=== PATIENT | male | born 1980 | race Caucasian/White ===

== ENCOUNTER 2018-04-27 15:18 | Inpatient (IN) ==
[2018-04-27 16:51] LABS: Amphetamine Screen,Urine Neg (Neg); Barbiturate Screen,Urine Neg (Neg)
[2018-04-27 16:52] LABS: Cannabinoid Screen,Urine Pos (Neg); Cocaine Screen,Urine Neg (Neg); Opiate Screen,Urine Neg (Neg)
[2018-04-27 16:59] LABS: Baso # (Auto) 0.1 th/mm3 (0.0-0.2); Baso % (Auto) 0.5 % (0.0-2.0); Eos # (Auto) 0.2 th/mm3 (0.0-0.4); Eos % (Auto) 1.9 % (0.0-4.0); Hematocrit 44.5 % (39.0-51.0); Hemoglobin 15.3 gm/dL (13.0-17.0); Lymph # (Auto) 3.3 th/mm3 (1.0-4.8); Lymph % (Auto) 29.6 % (9.0-44.0); Mean Corpuscular HGB Conc 34.4 % (32.0-36.0); Mean Corpuscular Hemoglobin 29.3 pg (27.0-34.0); Mean Corpuscular Volume 85.2 fL (80.0-100.0); Mean Platelet Volume 8.7 fL (7.0-11.0); Mono # (Auto) 0.8 th/mm3 (0.0-0.9); Mono % (Auto) 7.2 % (0.0-8.0); Neut # (Auto) 6.7 th/mm3 (1.8-7.7); Neut % (Auto) 60.8 % (16.0-70.0); Platelet Count 299 th/mm3 (150-450); Red Blood Count 5.22 mil/mm3 (4.50-5.90); White Blood Count 11.1 th/mm3 (4.0-11.0)
[2018-04-27 17:16] LABS: Albumin 3.7 g/dL (3.4-5.0); Anion Gap 7 meq/L (5-15); Aspartate Aminotransferase 14 U/L (15-37); Blood Urea Nitrogen 18 mg/dL (7-18); Calcium 8.7 mg/dL (8.5-10.1); Carbon Dioxide 26.6 meq/L (21.0-32.0); Chloride 108 meq/L (98-107); Glomerular Filtration Rate Greater Than 89 mL/min (>89); Glucose,Random 83 mg/dL (74-106); Magnesium 2.1 mg/dL (1.5-2.5); Potassium 3.8 meq/L (3.5-5.1); Sodium 142 meq/L (136-145)
[2018-04-27 17:26] LABS: Alanine Aminotransferase 37 U/L (12-78); Alkaline Phosphatase 113 U/L (45-117); Total Protein 7.1 g/dL (6.4-8.2)
--- NOTE | 2018-04-27 17:56 | ED ---
HPI General Chief Complaint: Psychiatric Symptoms Stated Complaint: Psych Eval/OBPD Time Seen by Provider: 04/27/18 15:57 Source: patient Mode of arrival: ambulatory Limitations: no limitations History of Present Illness HPI Narrative: 38-year-old male presents to the emergency department under [place] act. According to the Franklin act report the patient requested help because he was feeling depressed and suicidal. He said he is diagnosed with depression and normally prescribed Zoloft for his depression. Says he has not been taking his medication for over a month due to financial issues dealing with his insurance company. On my examination patient reports suicidal ideation. Denies suicidal plan. Reports history of suicidal attempt by overdosing on pills. Denies homicidal ideation. Denies auditory visual hallucinations. Reports marijuana use. Denies alcohol abuse. Reports tobacco use. Symptoms are aggravated by him not taking his medications. Says he is also overwhelmed by Adult Protective Services trying to find placement for him. Symptoms may be relieved with medication. Symptoms are moderate to severe in severity. Onset unknown. Duration most likely chronic. History of depression , PTSD, anxiety. Medical history of hypertension, asthma, degenerative joint disease, seizures. Says he supposed be taking Dilantin and has not taken it in over 1 month. Does not know his dosage. Has not taken blood pressure medications for multiple years. Has no emergent medical complaints. Psychiatry is at [facility]. No known allergies. No primary care provider. Has no other medical complaints. No other modifying factors or associated signs and symptoms. Related Data Home Medications Medication Instructions Recorded Confirmed albuterol sulfate 2 puff INHALATION Q4-6H PRN 11/27/17 04/27/18 ibuprofen [Motrin IB] 800 mg PO TID 11/27/17 04/27/18 Allergies Allergy/AdvReac Type Severity Reaction Status Date / Time No Known Allergies Allergy Verified 04/27/18 17:01 Review of Systems ROS: all other systems reviewed are negative [facility] Medical History Medical History Anxiety (Acute) PTSD (post-traumatic stress disorder) (Acute) Asthma (Acute) Degenerative joint disease (Acute) HTN (hypertension) (Acute) Seizures (Acute) Social History Social History Substance History: Active Abuse Second Hand Smoke Exposure: No Smoking Status: Current every day smoker Tobacco Type: Cigarettes How Often Do You Have a Drink Containing Alcohol: Monthly or less Recent Travel in [email or web address] within the Last 8 Weeks: No Recent Out of Country Travel within the Last 8 Weeks: No Substance Abuse Detail Marijuana: Substance Use Status: Active Route Used Substance Abuse: Inhalation Substance Frequency: daily Substance Abuse Comment: helps with anxiety and PTSD Reason for Use: Calm Down Immunization History Tetanus Immunization: Unsure Exam Narrative Exam Narrative: GENERAL: Well-nourished, well-developed male patient, in no acute distress SKIN: Warm and dry. HEAD: Atraumatic. Normocephalic. EYES: Pupils equal and round. ENT: Mucosa pink and moist. NECK: Supple. Trachea midline. CARDIOVASCULAR: Regular rate and rhythm. No murmur appreciated. RESPIRATORY: No accessory muscle use. Clear to auscultation. Breath sounds equal bilaterally. GASTROINTESTINAL: Abdomen soft, non-tender, nondistended. Hepatic and splenic margins not palpable. Bowel sounds are active 4 quadrants. MUSCULOSKELETAL: No obvious deformities. No clubbing. No cyanosis. No edema. NEUROLOGICAL: Awake and alert. Oriented 3. No obvious cranial nerve deficits. Motor grossly within normal limits. Normal speech. Moves all extremities. 5/5 strength to all extremities. PSYCHIATRIC: No delusional thought processes. No hallucinations. Course Initial Documented Vital Signs Temperature 98.1 F 04/27/18 15:34 Pulse Rate 93 H 04/27/18 15:34 Respiratory Rate 18 04/27/18 15:34 Blood Pressure 129/85 04/27/18 15:34 Pulse Oximetry 95 04/27/18 15:34 Last Documented Vital Signs Temperature 98.0 F 04/29/18 05:36 Pulse Rate 65 04/29/18 15:59 Respiratory Rate 16 04/29/18 15:59 Blood Pressure 158/104 H 04/29/18 05:36 Pulse Oximetry 98 04/29/18 05:36 Medical Decision Making [facility] Narrative Medical decision making narrative: Patient presents under a Franklin act. Physical examination and vital signs are essentially unremarkable. Patient has no medical complaints to report. Psych screen has been ordered. If the laboratory results are unremarkable, the patient will be medically cleared for psychiatric evaluation and disposition. The nurse taking care of the patient has called [facility] to verify Dilantin dosage and the senior technical writer in the ER has called [facility] to verify Dilantin dosage and there is no verified Dilantin that has been prescribed to this patient in the past year and a half on their records. These are the 2 pharmacies the patient has reported that he uses for prescriptions. I do not feel comfortable administering the medication that I cannot verify the patient takes, therefore I will not order any Dilantin for the patient. Medical Screen Exam Complete: Yes Emergency Medical Condition: Yes Differential Diagnosis Differential Diagnosis: depression, suicidal ideation, anxiety, medical clearance for psychiatric assessment Lab Data Result diagrams: 04/27/18 15:45 04/29/18 06:17 Lab Results 04/27/18 04/27/18 04/27/18 Range/Units 15:45 15:45 15:45 WBC 11.1 H (4.0-11.0) th/mm3 RBC 5.22 (4.50-5.90) mil/mm3 Hgb 15.3 (13.0-17.0) gm/dL Hct 44.5 (39.0-51.0) % MCV 85.2 (80.0-100.0) fL MCH 29.3 (27.0-34.0) pg MCHC 34.4 (32.0-36.0) % RDW 14.0 (11.6-17.2) % Plt Count 299 (150-450) th/mm3 MPV 8.7 (7.0-11.0) fL Neut % (Auto) 60.8 (16.0-70.0) % Lymph % (Auto) 29.6 (9.0-44.0) % [place] % (Auto) 7.2 (0.0-8.0) % Eos % (Auto) 1.9 (0.0-4.0) % Baso % (Auto) 0.5 (0.0-2.0) % Neut # (Auto) 6.7 (1.8-7.7) th/mm3 Lymph # (Auto) 3.3 (1.0-4.8) th/mm3 [place] # (Auto) 0.8 (0.0-0.9) th/mm3 Eos # (Auto) 0.2 (0.0-0.4) th/mm3 Baso # (Auto) 0.1 (0.0-0.2) th/mm3 WBC Differential . Differential Comment Auto diff final Sodium 142 (136-145) meq/L Potassium 3.8 (3.5-5.1) meq/L Chloride 108 H (98-107) meq/L Carbon Dioxide 26.6 (21.0-32.0) meq/L Anion Gap 7 (5-15) meq/L BUN 18 (7-18) mg/dL Creatinine 0.90 (0.60-1.30) mg/dL Estimated GFR Greater than 89 (>89) mL/min Random Glucose 83 (74-106) mg/dL Hemoglobin A1c (4.3-6.0) % Calcium 8.7 (8.5-10.1) mg/dL Magnesium 2.1 (1.5-2.5) mg/dL Total Bilirubin 0.2 (0.2-1.0) mg/dL AST 14 L (15-37) U/L ALT 37 (12-78) U/L Alkaline Phosphatase 113 (45-117) U/L Total Protein 7.1 (6.4-8.2) g/dL Albumin 3.7 (3.4-5.0) g/dL Triglycerides (42-150) mg/dL Cholesterol (120-200) mg/dL LDL Cholesterol, Calc (0-99) mg/dL HDL Cholesterol (40.0-60.0) mg/dL Cholesterol/HDL Ratio Ratio TSH 1.320 (0.358-3.740) uIU/mL Salicylates 5.3 (2.8-20.0) mg/dL Urine Opiates Screen (Neg) Acetaminophen Less than 2.0 L (10.0-30.0) mcg/mL Ur Barbiturates Screen (Neg) Phenytoin (10.0-20.0) mcg/mL Ur Amphetamines Screen (Neg) U Benzodiazepines Scrn (Neg) Urine Cocaine Screen (Neg) U Cannabinoids Screen (Neg) Serum Alcohol Less than 3 (0-5) mg/dL 04/27/18 04/27/18 04/29/18 Range/Units 15:45 16:03 06:17 WBC (4.0-11.0) th/mm3 RBC (4.50-5.90) mil/mm3 Hgb (13.0-17.0) gm/dL Hct (39.0-51.0) % MCV (80.0-100.0) fL MCH (27.0-34.0) pg MCHC (32.0-36.0) % RDW (11.6-17.2) % Plt Count (150-450) th/mm3 MPV (7.0-11.0) fL Neut % (Auto) (16.0-70.0) % Lymph % (Auto) (9.0-44.0) % [place] % (Auto) (0.0-8.0) % Eos % (Auto) (0.0-4.0) % Baso % (Auto) (0.0-2.0) % Neut # (Auto) (1.8-7.7) th/mm3 Lymph # (Auto) (1.0-4.8) th/mm3 [place] # (Auto) (0.0-0.9) th/mm3 Eos # (Auto) (0.0-0.4) th/mm3 Baso # (Auto) (0.0-0.2) th/mm3 WBC Differential Differential Comment Sodium 139 (136-145) meq/L Potassium 4.2 (3.5-5.1) meq/L Chloride 108 H (98-107) meq/L Carbon Dioxide 24.7 (21.0-32.0) meq/L Anion Gap 6 (5-15) meq/L BUN 19 H (7-18) mg/dL Creatinine 0.90 (0.60-1.30) mg/dL Estimated GFR Greater than 89 (>89) mL/min Random Glucose 98 (74-106) mg/dL Hemoglobin A1c (4.3-6.0) % Calcium 8.4 L (8.5-10.1) mg/dL Magnesium (1.5-2.5) mg/dL Total Bilirubin (0.2-1.0) mg/dL AST (15-37) U/L ALT (12-78) U/L Alkaline Phosphatase (45-117) U/L Total Protein (6.4-8.2) g/dL Albumin (3.4-5.0) g/dL Triglycerides 76 (42-150) mg/dL Cholesterol 127 (120-200) mg/dL LDL Cholesterol, Calc 83 (0-99) mg/dL HDL Cholesterol 28.4 L (40.0-60.0) mg/dL Cholesterol/HDL Ratio 4.47 Ratio TSH (0.358-3.740) uIU/mL Salicylates (2.8-20.0) mg/dL Urine Opiates Screen Neg (Neg) Acetaminophen (10.0-30.0) mcg/mL Ur Barbiturates Screen Neg (Neg) Phenytoin 0.8 L (10.0-20.0) mcg/mL Ur Amphetamines Screen Neg (Neg) U Benzodiazepines Scrn Neg (Neg) Urine Cocaine Screen Neg (Neg) U Cannabinoids Screen Pos H (Neg) Serum Alcohol (0-5) mg/dL 04/29/18 Range/Units 06:17 WBC (4.0-11.0) th/mm3 RBC (4.50-5.90) mil/mm3 Hgb (13.0-17.0) gm/dL Hct (39.0-51.0) % MCV (80.0-100.0) fL MCH (27.0-34.0) pg MCHC (32.0-36.0) % RDW (11.6-17.2) % Plt Count (150-450) th/mm3 MPV (7.0-11.0) fL Neut % (Auto) (16.0-70.0) % Lymph % (Auto) (9.0-44.0) % [place] % (Auto) (0.0-8.0) % Eos % (Auto) (0.0-4.0) % Baso % (Auto) (0.0-2.0) % Neut # (Auto) (1.8-7.7) th/mm3 Lymph # (Auto) (1.0-4.8) th/mm3 [place] # (Auto) (0.0-0.9) th/mm3 Eos # (Auto) (0.0-0.4) th/mm3 Baso # (Auto) (0.0-0.2) th/mm3 WBC Differential Differential Comment Sodium (136-145) meq/L Potassium (3.5-5.1) meq/L Chloride (98-107) meq/L Carbon Dioxide (21.0-32.0) meq/L Anion Gap (5-15) meq/L BUN (7-18) mg/dL Creatinine (0.60-1.30) mg/dL Estimated GFR (>89) mL/min Random Glucose (74-106) mg/dL Hemoglobin A1c 5.5 (4.3-6.0) % Calcium (8.5-10.1) mg/dL Magnesium (1.5-2.5) mg/dL Total Bilirubin (0.2-1.0) mg/dL AST (15-37) U/L ALT (12-78) U/L Alkaline Phosphatase (45-117) U/L Total Protein (6.4-8.2) g/dL Albumin (3.4-5.0) g/dL Triglycerides (42-150) mg/dL Cholesterol (120-200) mg/dL LDL Cholesterol, Calc (0-99) mg/dL HDL Cholesterol (40.0-60.0) mg/dL Cholesterol/HDL Ratio Ratio TSH (0.358-3.740) uIU/mL Salicylates (2.8-20.0) mg/dL Urine Opiates Screen (Neg) Acetaminophen (10.0-30.0) mcg/mL Ur Barbiturates Screen (Neg) Phenytoin (10.0-20.0) mcg/mL Ur Amphetamines Screen (Neg) U Benzodiazepines Scrn (Neg) Urine Cocaine Screen (Neg) U Cannabinoids Screen (Neg) Serum Alcohol (0-5) mg/dL Discharge Plan Discharge Disposition Patient Disposition: ED Admit(ED Internal Use Only) Discharge Condition Condition: Stable Discharge Order Discharge Orders: ED Use Only Admit Order (Routine); Ordered 04/28/18 Ordered By: Nathalie Lewis Discharge Details Diagnosis: Encounter for psychiatric assessment Physicians Team ED Provider: Parag Bell ED Midlevel Provider: Junie Avendano Primary Care Provider: Primary Care Tanya Davila Attending Provider: Roldan Hernandez Other Providers: Niurka Kiser Discharge Interventions Interventions: ED Discharge Assessment Last Done: 04/28/18 10:53 Vital Signs Last Done: 04/28/18 04:27 Status ED Status: Left Department Discharge Information Discharge Date/Time: 04/28/18 11:19
[2018-04-28] MEDS ORDERED: Bisacodyl 10 MG Supp RECTAL PRN (10:12)
--- NOTE | 2018-04-28 13:16 | ED ---
HPI - Psych - General Source: patient Mode of arrival: ambulatory - History of Present Illness complaint: suicidal ideation, feels depressed Onset (ago): day(s) Duration: intermittent, getting worse History of same: Yes Relieving factors: medication Exacerbating factors: other (Noncompliance with medication) Context: significant life stressor (Homeless) Associated psychiatric symptoms: depression, suicidal ideation Associated symptoms: denies other symptoms Treatments prior to arrival: none - General Chief Complaint: Psychiatric Symptoms Stated Complaint: Psych Eval/OBPD Time Seen by Provider: 04/27/18 15:57 - History of Present Illness HPI Narrative: This is a 38-year old single, male who presents under [facility] to this facility for suicidal thoughts. Patient is known to this facility and department. Reviewed electronic medical record, labs, discussed case with staff. Patient's toxicology screen is positive for cannabinoids. His nurse states he has had no behavioral disturbances while here. He was an established outpatient at [facility] however, according to their records the last time he picked up medications was in November. Patient was evaluated in his room pod. He was found awake, alert and oriented x4. His appearance is disheveled and he is clad in [facility]. His speech is clear, logical, organized, abnormal hany and volume if somewhat childlike. He reports that he has been "feeling depressed and thinking about ways of trying to kill myself". He is denying homicidal ideation or auditory or visual hallucinations. There is no indication of psychosis or jayro. I can elicit no delusional material at this time. Patient does admit to being homeless at this time. He states that he is awaiting placement in a residential. He reports that his community health educator from [employer], Pippa Suarez, is working on it. He states that he is sleeping and eating well. Reports that he receives SSI and is unemployed. Claims that there was one attempt by overdose "years ago". (Nathalie Lewis) - Related Data Home Medications Medication Instructions Recorded Confirmed albuterol sulfate 2 puff INHALATION Q4-6H PRN 11/27/17 04/27/18 ibuprofen [Motrin IB] 800 mg PO TID 11/27/17 04/27/18 Allergies Allergy/AdvReac Type Severity Reaction Status Date / Time No Known Allergies Allergy Verified 04/27/18 17:01 Review of Systems All other systems reviewed negative except as stated in HPI PMFSH - History History Provided By: Patient - Medical History Medical History: Medical History (Last Reviewed 04/28/18 @ 13:05 by CECILIA Caruso) Anxiety PTSD (post-traumatic stress disorder) Asthma Degenerative joint disease HTN (hypertension) Seizures - Surgical History Surgical History: Surgical History (Last Reviewed 04/28/18 @ 13:05 by CECILIA Caruso) History of appendectomy - Tobacco History Second Hand Smoke Exposure: No Tobacco Use In Past 30 Days: Yes Smoking Status: Current every day smoker Tobacco Type: Cigarettes - Alcohol History How Often Do You Have a Drink Containing Alcohol: Monthly or less - Substance Use History Substance History: Active Abuse - Substance Use Type Marijuana Status: Active Route Used: Inhalation Frequency: daily Reason for Use: Calm Down Comment: helps with anxiety and PTSD - Travel History Recent Travel in the [facility] Within the Last 8 Weeks: No Recent Travel Out of the Country Within the Last 8 Weeks: No - Immunization History Tetanus Immunization: <5 Years Hx Influenza Vaccine This Season: No Psychiatric History - Psychiatric History Psychiatric Treatment History: History of Psychiatric Treatment, History of Hospitalization in a Psychiatric Facility Firearms in Home: No Physical Exam - General Limitations: no limitations General appearance: alert, anxious - Head Head exam: atraumatic - Neurological Exam Neurological exam: Present: alert, oriented X3 - Psychiatric Psychiatric exam: Present: anxious Mental Status Examination Appearance: Disheveled Consciousness: Alert Orientation: x4 Motor Activity: Normal gait Speech: Unremarkable Language: Adequate Fund of Knowledge: Adequate Memory: Unremarkable Mood: Anxious Affect: Anxious Thought Process & Associations: Intact, Logical Thought Content: Appropriate Hallucination Type: None Delusion Type: None Suicidal Ideation: No Suicidal Plan: No Suicidal Intention: No Homicidal Ideation: No Homicidal Plan: No Homicidal Intention: No Insight: Fair Judgment: Impulsive Initial Documented Vital Signs Temperature 98.1 F 04/27/18 15:34 Pulse Rate 93 H 04/27/18 15:34 Respiratory Rate 18 04/27/18 15:34 Blood Pressure 129/85 04/27/18 15:34 Pulse Oximetry 95 04/27/18 15:34 Last Documented Vital Signs Temperature 98.1 F 04/28/18 12:12 Pulse Rate 62 04/28/18 12:12 Respiratory Rate 18 04/28/18 12:12 Blood Pressure 133/89 04/28/18 12:12 Pulse Oximetry 99 04/28/18 04:27 MDM - Psych - Diagnosis (1) Adjustment disorder with anxious mood Status: Acute - Lab Data Result diagrams: 04/27/18 15:45 04/27/18 15:45 - MDM Narrative Medical decision making narrative: This patient maintains that he is suicidal and feels depressed. While I am willing to concede that he may be malingering for fdc, he has not been on his medications for several months now and may be destabilizing. Therefore, I have admitted him to a locked inpatient unit for further evaluation and treatment as deemed necessary. I have continued his psychotropic medications and obtain signed consent forms. (Nathalie Lewis) - Lab Data Lab Results 04/27/18 04/27/18 04/27/18 Range/Units 15:45 15:45 15:45 WBC 11.1 H (4.0-11.0) th/mm3 RBC 5.22 (4.50-5.90) mil/mm3 Hgb 15.3 (13.0-17.0) gm/dL Hct 44.5 (39.0-51.0) % MCV 85.2 (80.0-100.0) fL MCH 29.3 (27.0-34.0) pg MCHC 34.4 (32.0-36.0) % RDW 14.0 (11.6-17.2) % Plt Count 299 (150-450) th/mm3 MPV 8.7 (7.0-11.0) fL Neut % (Auto) 60.8 (16.0-70.0) % Lymph % (Auto) 29.6 (9.0-44.0) % [place] % (Auto) 7.2 (0.0-8.0) % Eos % (Auto) 1.9 (0.0-4.0) % Baso % (Auto) 0.5 (0.0-2.0) % Neut # (Auto) 6.7 (1.8-7.7) th/mm3 Lymph # (Auto) 3.3 (1.0-4.8) th/mm3 [place] # (Auto) 0.8 (0.0-0.9) th/mm3 Eos # (Auto) 0.2 (0.0-0.4) th/mm3 Baso # (Auto) 0.1 (0.0-0.2) th/mm3 WBC Differential . Differential Comment Auto diff final Sodium 142 (136-145) meq/L Potassium 3.8 (3.5-5.1) meq/L Chloride 108 H (98-107) meq/L Carbon Dioxide 26.6 (21.0-32.0) meq/L Anion Gap 7 (5-15) meq/L BUN 18 (7-18) mg/dL Creatinine 0.90 (0.60-1.30) mg/dL Estimated GFR Greater than 89 (>89) mL/min Random Glucose 83 (74-106) mg/dL Calcium 8.7 (8.5-10.1) mg/dL Magnesium 2.1 (1.5-2.5) mg/dL Total Bilirubin 0.2 (0.2-1.0) mg/dL AST 14 L (15-37) U/L ALT 37 (12-78) U/L Alkaline Phosphatase 113 (45-117) U/L Total Protein 7.1 (6.4-8.2) g/dL Albumin 3.7 (3.4-5.0) g/dL TSH 1.320 (0.358-3.740) uIU/mL Salicylates 5.3 (2.8-20.0) mg/dL Urine Opiates Screen (Neg) Acetaminophen Less than 2.0 L (10.0-30.0) mcg/mL Ur Barbiturates Screen (Neg) Phenytoin (10.0-20.0) mcg/mL Ur Amphetamines Screen (Neg) U Benzodiazepines Scrn (Neg) Urine Cocaine Screen (Neg) U Cannabinoids Screen (Neg) Serum Alcohol Less than 3 (0-5) mg/dL 04/27/18 04/27/18 Range/Units 15:45 16:03 WBC (4.0-11.0) th/mm3 RBC (4.50-5.90) mil/mm3 Hgb (13.0-17.0) gm/dL Hct (39.0-51.0) % MCV (80.0-100.0) fL MCH (27.0-34.0) pg MCHC (32.0-36.0) % RDW (11.6-17.2) % Plt Count (150-450) th/mm3 MPV (7.0-11.0) fL Neut % (Auto) (16.0-70.0) % Lymph % (Auto) (9.0-44.0) % [place] % (Auto) (0.0-8.0) % Eos % (Auto) (0.0-4.0) % Baso % (Auto) (0.0-2.0) % Neut # (Auto) (1.8-7.7) th/mm3 Lymph # (Auto) (1.0-4.8) th/mm3 [place] # (Auto) (0.0-0.9) th/mm3 Eos # (Auto) (0.0-0.4) th/mm3 Baso # (Auto) (0.0-0.2) th/mm3 WBC Differential Differential Comment Sodium (136-145) meq/L Potassium (3.5-5.1) meq/L Chloride (98-107) meq/L Carbon Dioxide (21.0-32.0) meq/L Anion Gap (5-15) meq/L BUN (7-18) mg/dL Creatinine (0.60-1.30) mg/dL Estimated GFR (>89) mL/min Random Glucose (74-106) mg/dL Calcium (8.5-10.1) mg/dL Magnesium (1.5-2.5) mg/dL Total Bilirubin (0.2-1.0) mg/dL AST (15-37) U/L ALT (12-78) U/L Alkaline Phosphatase (45-117) U/L Total Protein (6.4-8.2) g/dL Albumin (3.4-5.0) g/dL TSH (0.358-3.740) uIU/mL Salicylates (2.8-20.0) mg/dL Urine Opiates Screen Neg (Neg) Acetaminophen (10.0-30.0) mcg/mL Ur Barbiturates Screen Neg (Neg) Phenytoin 0.8 L (10.0-20.0) mcg/mL Ur Amphetamines Screen Neg (Neg) U Benzodiazepines Scrn Neg (Neg) Urine Cocaine Screen Neg (Neg) U Cannabinoids Screen Pos H (Neg) Serum Alcohol (0-5) mg/dL
[2018-04-28] MEDS: Ibuprofen 200 MG Tablet PO SCH ×2 (13:31→18:07)
[2018-04-28] MEDS: Sertraline 50 MG Tablet PO SCH (13:31)
[2018-04-28] MEDS ORDERED: Ibuprofen 600 MG Tablet PO SCH (14:00)
[2018-04-28] MEDS ORDERED: Influenza (Quadrivalent) Vaccine 0.5 ML Syringe IM ONE (14:00)
[2018-04-28] MEDS: Senna/Docusate Sodium 8.6/50 MG Tablet PO SCH (20:51)
[2018-04-29 07:17] LABS: Anion Gap 6 meq/L (5-15); Blood Urea Nitrogen 19 mg/dL (7-18); Calcium 8.4 mg/dL (8.5-10.1); Carbon Dioxide 24.7 meq/L (21.0-32.0); Chloride 108 meq/L (98-107); Glomerular Filtration Rate Greater Than 89 mL/min (>89); Glucose,Random 98 mg/dL (74-106); Potassium 4.2 meq/L (3.5-5.1); Sodium 139 meq/L (136-145)
[2018-04-29 07:19] LABS: Cholesterol 127 mg/dL (120-200); Triglycerides 76 mg/dL (42-150)
[2018-04-29 07:21] LABS: Chol/HDL Ratio 4.47 Ratio; HDL Cholesterol 28.4 mg/dL (40.0-60.0); LDL Cholesterol,Calculated 83 mg/dL (0-99)
[2018-04-29] MEDS: Sertraline 50 MG Tablet PO SCH (07:59)
[2018-04-29] MEDS: Senna/Docusate Sodium 8.6/50 MG Tablet PO SCH (07:59)
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
[2018-04-29 13:49] LABS: Hemoglobin A1c 5.5 % (4.3-6.0)
--- NOTE | 2018-04-29 16:37 | ECG ---
Date Performed: 04/29/2018 Time Performed: 10:50:48 PTAGE: 38 years EKG: SINUS BRADYCARDIA WITH SINUS ARRHYTHMIA EARLY R WAVE TRANSITION Compared to previous tracin g, sinus bradycardia is new. The early R wave transition is new. Clinical correlation is advised BORVaishnavi KALPANA ECG PREVIOUS TRACING : 11/21/2002 20.39 DOCTOR: Josephine Allred Interpretating Date/Time 04/29/2018 16:35:16
[2018-04-29] MEDS: Aluminum/Magnesium/Simethacone Susp 30 ML UDC PO PRN (17:59)
--- NOTE | 2018-04-29 18:03 | MB ---
cc: Niurka Kiser MD DATE: 04/29/2018 REASON FOR CONSULTATION: History of seizure. HISTORY OF PRESENT ILLNESS: This is a pleasant 38-year-old man with significant history of depression, PTSD, history of epilepsy since the age of 11. He cannot tell me why he had seizures, but he has not had any in 2 years. Has not taken any medicine. He states that he was on Dilantin in the past, has been on Depakote but did not tolerate it well because he gained a lot of weight. Otherwise, offers no complaints. PHYSICAL EXAMINATION: Neurologically, he is awake, alert. He is oriented. He is fluent. Speech is normal. He is receiving a nebulizer treatment, but his pupils are reactive. His face is symmetrical. Motor hutson, no tremors, no weakness. No drift or leg lag. He has been ambulating on his own here in the area. LABORATORY DATA: Reviewed. His white count is 11.1, hemoglobin 15.3, platelets 299,000. Chemistries: LFTs are intact. TSH is normal. LDL was 83. Tox screen positive for cannabinoids. IMPRESSION: History of epilepsy in a 38-year-old man since childhood. Recommend getting an EEG and, at some point in time, I would recommend that we restart him on antiepileptics. I am worried that Keppra might cause more mood issues. Certainly, we can consider putting him on lamotrigine, start him at 50 mg at nighttime and then in a week go to b.i.d. dosing and increase by 25 mg weekly until we have 100 mg b.i.d. I will put in the 50 mg tonight. Continue current recommendations. MD JAYLON Chavez/delicia , 04:09 PM , 04:16 PM
[2018-04-29] MEDS: lamoTRIgine 25 MG TABLET PO SCH (21:10)
[2018-04-30] MEDS: lamoTRIgine 25 MG TABLET PO SCH ×2 (08:29→21:03)
[2018-04-30] MEDS: Sertraline 50 MG Tablet PO SCH (08:30)
--- NOTE | 2018-04-30 12:58 | P.PNPSY ---
Subjective Chief Complaint: Worsening depression with suicidal ideations but no plan Remarks: The patient was interviewed in the privacy of their room and accompanied by the assigned nurse. We reviewed the patient's mood, thoughts, and behaviors from overnight and this morning. Nurse reports that overnight the patient was calm and cooperative and seemed to sleep well. This morning the patient was observed to become agitated and hostile with staff was heard yelling as he paced the unit hallway. The patient was seen in the privacy of his room to process his emotions and behaviors. The patient expressed anger and a belief that he is mistreated because he was not allowed visiting hours during the middle of the day. The patient made a statement that if he is not can be allowed to visit his family while in the hospital than he would rather just . The patient was asked to clarify and he admits that he made those statements out of anger and that he really does not want to and does not plan to kill himself in the hospital. He expressed frustration because his sister will not be able to visit him during the normal visiting hours in the evening because she is a lone caregiver for 2 special needs children. Additionally, his sister is going out of town this weekend and he is worried about her leaving him without getting a hug. The patient was provided feedback from the provider about his behavior and we processed how his interpretation of the rules as an attempt to harm him personally was part of the reason he reacted with intense anger. We also discussed how this anger could be directed towards others but also towards himself and the manifestation of suicidal threats. We discussed how rather than becoming aggressive in the face of limits or conflict, that if he could communicate and cooperate with those around him or those in authority that a better outcome could be had. The patient was offered a family session with his sister today before lunch and he agreed and his sister complied. We met with his sister at [phone]. We discussed the discharge and treatment plan with his sister and she is very supportive. Patient's sister has been working with the patient to try to find stable housing and she has also been keeping his calendar of important appointments, one of which is a Social Security appointment on the 12th that if he misses he would be in jeopardy of losing his disability income. The patient expressed gratitude with his ability to meet with his sister and he apologized to staff for his behavior. Review of Systems All other systems reviewed negative except as stated in HPI Mental Status Examination Appearance: Disheveled Consciousness: Alert Orientation: x4 Motor Activity: Normal gait Speech: Unremarkable Language: Adequate Fund of Knowledge: Adequate Memory: Unremarkable Mood: Angry, Sad, Anxious Affect: Labile Thought Process & Associations: Intact, Logical Thought Content: Preoccupations Hallucination Type: None Delusion Type: None Suicidal Ideation: No Suicidal Plan: No Suicidal Intention: No Homicidal Ideation: No Homicidal Plan: No Homicidal Intention: No Insight: Fair Judgment: Impulsive Assessment and Plan - Plan Plan: 04/29/2018 initial treatment plan: 1. Continue with admission to inpatient psychiatry at [facility]; voluntary /competent legal status. 2. Routine unit precautions. 3. Comfort medications ordered for as needed treatment of constipation, heartburn, diarrhea, and mild pain. 4. Hydroxyzine 50mg po q6H prn anxiety/insomnia. 5. Patient will participate in the unit programming to include group therapies , milieu therapy and recreational therapies. 6. Restart his Zoloft 50 mg/day for treatment of anxiety and depression. Anticipate titration back to 100 mg/day if tolerated. 7. Discharge planning: The patient is at risk of decompensation self neglect and self-harm due to his low cognitive and emotional functioning and history of severe childhood diversity and recurrent depressions with suicidal ideations therefore a safe discharge will need to include a structured environment with support. 04/30/2018: Unsatisfactory response to treatment, as evidenced by the patient's labile affect and anger control problems that were demonstrated today. The patient has a history of emotional and mental disabilities and has immature defenses as evidenced by his behavior today. Continue treatment with Zoloft for depression and anxiety as well as Lamictal for mood and seizures has a chance to further improve the patient's ability to control his behavior and stabilize his moods. Plan: 1. Continue inpatient treatment plan and stabilization; no changes to psychotropics. 2. Continue Lamictal titration with 25 mg twice a day as ordered by neurology. 3. Discharge planning: The patient is appropriate for referral to an assisted living facility and the application process has been started. The patient's Social Security appointment on 05 May will need to be rescheduled unless by chance he is discharged before that time. Justification for Continued Inpatient Stay: Patient remains an elevated risk for self-harm and will require further inpatient stabilization and preparation of a safe discharge plan. Moving patient to a less restrictive environment at this time may result in decompensation. Request Healthcare Surrogate/Guardian Advocate?: No
[2018-04-30] MEDS: Aluminum/Magnesium/Simethacone Susp 30 ML UDC PO PRN (19:48)
[2018-05-01] MEDS: lamoTRIgine 25 MG TABLET PO SCH ×2 (08:34→20:43)
[2018-05-01] MEDS: Sertraline 50 MG Tablet PO SCH (08:34)
[2018-05-01] MEDS: Aluminum/Magnesium/Simethacone Susp 30 ML UDC PO PRN (09:02)
--- NOTE | 2018-05-01 13:27 | P.PNPSY ---
Subjective Chief Complaint: admitted for worsening depression with suicidal ideations but no plan Remarks: Pt seen and discussed with staff. Pt was agitated yesterday but was able to calm down with staff intervention and did not require emergency treatment order. He has been calm today. He remains depressed but has been interacting more with peers and attending groups and other milieu activities. He compliant with medications. No SI/HI He c/o of GERD symptoms and he is noted to be using maalox daily. Mental Status Examination Appearance: Disheveled Consciousness: Alert Orientation: x4 Motor Activity: Normal gait Speech: Unremarkable Language: Adequate Fund of Knowledge: Adequate Memory: Unremarkable Mood: Anxious Affect: Appropriate Thought Process & Associations: Intact, Logical Thought Content: Preoccupations Hallucination Type: None Delusion Type: None Suicidal Ideation: No Suicidal Plan: No Suicidal Intention: No Homicidal Ideation: No Homicidal Plan: No Homicidal Intention: No Insight: Fair Judgment: Impulsive Assessment and Plan - Assessment (1) Major depressive disorder, recurrent episode, severe Code(s): F33.2 - Major depressive disorder, recurrent severe without psychotic features Status: Acute (2) Chronic post-traumatic stress disorder (PTSD) Code(s): F43.12 - Post-traumatic stress disorder, chronic Status: Acute - Plan Plan: Continue current tx plan. Justification for Continued Inpatient Stay: risk of decompensation Request Healthcare Surrogate/Guardian Advocate?: No
[2018-05-02] MEDS: lamoTRIgine 25 MG TABLET PO SCH ×2 (08:13→21:18)
[2018-05-02] MEDS: Pantoprazole Sodium 20 MG DR Tablet PO SCH (08:13)
[2018-05-02] MEDS: Sertraline 50 MG Tablet PO SCH (08:14)
--- NOTE | 2018-05-02 12:04 | P.PNPSY ---
Subjective Chief Complaint: admitted for worsening depression with suicidal ideations but no plan Remarks: Reviewed electronic medical record and discussed with nursing staff. Rounded with JAYDON Diaz. Patient in common area. Non-productive cough. He is very worried because he has had pneumonia is the past and asking for a cxr. 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 Will place a hospitalist consultation. He is asking for more food. I explained to patient that he should be trying to loose weight due to his large abd girth and that he should keep to the three meals with snacks. Denies SI/HI. He endorses that his depression is improving. Review of Systems All other systems reviewed negative except as stated in HPI Mental Status Examination Appearance: Disheveled Consciousness: Alert Orientation: x4 Motor Activity: Normal gait Speech: Unremarkable Language: Adequate Fund of Knowledge: Adequate Memory: Unremarkable Mood: Anxious Affect: Appropriate Thought Process & Associations: Intact, Logical Thought Content: Preoccupations Hallucination Type: None Delusion Type: None Suicidal Ideation: No Suicidal Plan: No Suicidal Intention: No Homicidal Ideation: No Homicidal Plan: No Homicidal Intention: No Insight: Fair Judgment: Impulsive Assessment and Plan - Assessment (1) Chronic post-traumatic stress disorder Code(s): F43.12 - Post-traumatic stress disorder, chronic Status: Acute (2) Major depressive disorder, recurrent episode, severe Code(s): F33.2 - Major depressive disorder, recurrent severe without psychotic features Status: Acute - Plan Plan: Continue current tx plan. Justification for Continued Inpatient Stay: Moving patient to a less restrictive environment may result in his decompensation. Request Healthcare Surrogate/Guardian Advocate?: No
[2018-05-02] MEDS: Aluminum/Magnesium/Simethacone Susp 30 ML UDC PO PRN (17:18)
[2018-05-02 17:36] LABS: Baso # (Auto) 0.1 th/mm3 (0.0-0.2); Baso % (Auto) 0.5 % (0.0-2.0); Eos # (Auto) 0.3 th/mm3 (0.0-0.4); Eos % (Auto) 2.7 % (0.0-4.0); Hematocrit 45.4 % (39.0-51.0); Hemoglobin 15.8 gm/dL (13.0-17.0); Lymph # (Auto) 3.2 th/mm3 (1.0-4.8); Lymph % (Auto) 29.2 % (9.0-44.0); Mean Corpuscular HGB Conc 34.8 % (32.0-36.0); Mean Corpuscular Hemoglobin 29.3 pg (27.0-34.0); Mean Corpuscular Volume 84.2 fL (80.0-100.0); Mean Platelet Volume 8.7 fL (7.0-11.0); Mono % (Auto) 9.4 % (0.0-8.0); Neut # (Auto) 6.3 th/mm3 (1.8-7.7); Neut % (Auto) 58.2 % (16.0-70.0); Platelet Count 255 th/mm3 (150-450); White Blood Count 10.9 th/mm3 (4.0-11.0)
--- NOTE | 2018-05-02 17:57 | XR ---
EXAM DATE: 05/02/2018 5:39 PM EST AGE/SEX: 38 years / Male INDICATIONS: . Cough. CLINICAL DATA: This is the patient's initial encounter. Patient reports that signs and symptoms have been present for 1 day and indicates a pain score of 0/10. MEDICAL/SURGICAL HISTORY: None. None. COMPARISON: No prior exams available for comparison. FINDINGS: PA and lateral views of the chest demonstrate a normal-sized cardiac silhouette. There is no effusion , consolidation, or pneumothorax. There is likely a mild degree of atelectasis at the lung bases. Mil d pleural-based opacity is appreciated bilaterally on the frontal projection without pleural effusion . Therefore, this may represent a normal variant. The bones and soft tissues demonstrate no acute abn ormality. CONCLUSION: No acute cardiopulmonary abnormality is appreciated. Electronically signed by: Alfonzo Lozano MD 05/02/2018 5:56 PM EST
[2018-05-03] MEDS: Pantoprazole Sodium 20 MG DR Tablet PO SCH (08:47)
[2018-05-03] MEDS: Sertraline 50 MG Tablet PO SCH (08:47)
[2018-05-03] MEDS: lamoTRIgine 25 MG TABLET PO SCH ×2 (08:47→21:37)
[2018-05-03] MEDS ORDERED: Petrolatum Oint 30 GM Tube TOPICAL PRN (11:06)
--- NOTE | 2018-05-03 16:00 | P.PNPSY ---
Subjective Chief Complaint: admitted for worsening depression with suicidal ideations but no plan Remarks: The patient was interviewed in the privacy of their room and accompanied by the assigned nurse. We reviewed the patient's mood, thoughts, and behaviors from overnight and this morning. Nursing reports that the patient can be intrusive and needy with peers and staff but overall socializes well within the milieu. He has been cooperative with care. He has denies suicidal or homicidal ideation weekend. This afternoon he did complain of his nebulizer treatment coming late and he expressed thoughts of "I might as well just kill myself if no one cares about me". He then requested treatment with his Atarax for anxiety and after approximately 20 minutes he reported feeling better and he apologized to the nurses for making comments. The patient insists that he has no desire to hurt himself and he agrees to continue working on his communication when feeling that his needs are not being met. Review of Systems All other systems reviewed negative except as stated in HPI Mental Status Examination Appearance: Disheveled Consciousness: Alert Orientation: x4 Motor Activity: Normal gait Speech: Unremarkable Language: Adequate Fund of Knowledge: Adequate Memory: Unremarkable Mood: Anxious Affect: Appropriate Thought Process & Associations: Intact, Logical Thought Content: Preoccupations Hallucination Type: None Delusion Type: None Suicidal Ideation: No Suicidal Plan: No Suicidal Intention: No Homicidal Ideation: No Homicidal Plan: No Homicidal Intention: No Insight: Fair Judgment: Impulsive Assessment and Plan - Assessment (1) Major depressive disorder, recurrent episode, severe Code(s): F33.2 - Major depressive disorder, recurrent severe without psychotic features Status: Acute (2) Chronic post-traumatic stress disorder (PTSD) Code(s): F43.12 - Post-traumatic stress disorder, chronic Status: Acute - Plan Plan: 05/03/2018: Fair response to treatment, the patient has been calm and cooperative with care and tolerating the restart of his antidepressant. He continues to display immature coping as evidenced by his response to his breathing treatments coming late today. He is at risk of continued threats of suicide in response to feeling that his needs are not met but thus far he has been able to cooperate with efforts to provide him support and he has demonstrated his own ability to self soothe and is overall committed to his recovery. Plan: 1. Continue inpatient treatment plan and stabilization. 2. Discharge planning: Patient to be interviewed by home/[facility] today and if accepted could be discharged tomorrow. The patient has requested that he be discharged back to his tent if a usp or [facility] cannot be found this week. Justification for Continued Inpatient Stay: Patient remains an elevated risk for self-harm and will require further inpatient stabilization and preparation of a safe discharge plan. Moving patient to a less restrictive environment at this time may result in decompensation. Request Healthcare Surrogate/Guardian Advocate?: No
[2018-05-04] MEDS: lamoTRIgine 25 MG TABLET PO SCH ×2 (08:35→21:10)
[2018-05-04] MEDS: Pantoprazole Sodium 20 MG DR Tablet PO SCH (08:35)
[2018-05-04] MEDS: Sertraline 50 MG Tablet PO SCH (08:35)
--- NOTE | 2018-05-04 15:19 | P.PNPSY ---
Subjective Chief Complaint: admitted for worsening depression with suicidal ideations but no plan Remarks: Patient seen for follow-up, chart reviewed, patient discussed with nursing staff ; we reviewed the patient's mood, thoughts, and behaviors from overnight and this morning. Nursing reports the patient remains cooperative with care. He is active within the milieu and attends most groups. He continues to demonstrate "temper tantrums" when he does not get his way but eventually calms down and apologizes for behavior. Patient reports satisfaction with his current medications and medical treatment. He is motivated to be discharged as soon as possible but agrees with referrals for placement in a supportive living environment. He has tolerated the start of Zoloft and agrees to recommendation to increase to therapeutic dose of 100 mg/day. Review of Systems Respiratory: Reports chest congestion, Reports shortness of breath with activity Psychiatric: Reports anxiety, Reports depression, Denies hearing things others do not hear, Denies paranoia, Denies thoughts of hurting/killing others, Denies thoughts of hurting/killing yourself Mental Status Examination Appearance: Disheveled Consciousness: Alert Orientation: x4 Motor Activity: Normal gait Speech: Unremarkable Language: Adequate Fund of Knowledge: Adequate Memory: Unremarkable Mood: Anxious Affect: Appropriate Thought Process & Associations: Intact, Logical Thought Content: Preoccupations Hallucination Type: None Delusion Type: None Suicidal Ideation: No Suicidal Plan: No Suicidal Intention: No Homicidal Ideation: No Homicidal Plan: No Homicidal Intention: No Insight: Fair Judgment: Impulsive Assessment and Plan - Assessment (1) Major depressive disorder, recurrent episode, severe Code(s): F33.2 - Major depressive disorder, recurrent severe without psychotic features Status: Acute (2) Chronic post-traumatic stress disorder (PTSD) Code(s): F43.12 - Post-traumatic stress disorder, chronic Status: Acute - Plan Plan: 05/03/2018: Fair response to treatment, the patient has been calm and cooperative with care and tolerating the restart of his antidepressant. He continues to display immature coping as evidenced by his response to his breathing treatments coming late today. He is at risk of continued threats of suicide in response to feeling that his needs are not met but thus far he has been able to cooperate with efforts to provide him support and he has demonstrated his own ability to self soothe and is overall committed to his recovery. Plan: 1. Continue inpatient treatment plan and stabilization. 2. Discharge planning: Patient to be interviewed by home/[facility] today and if accepted could be discharged tomorrow. The patient has requested that he be discharged back to his tent if a long term or [facility] cannot be found this week. 05/04/2018: Good response to treatment, patient remains calm and cooperative and is engaging appropriately within the milieu and with the treatment team is at makes arrangements for discharge. Plan: 1. Continue inpatient treatment plan with further increase of his Zoloft to 100 mg/day for therapeutic dosing of antidepressant treatment. 2. Anticipate discharge to short-term rehabilitation Center tomorrow with eventual transition to assisted living facility next month. Justification for Continued Inpatient Stay: Patient remains an elevated risk for self-harm and will require further inpatient stabilization and preparation of a safe discharge plan. Moving patient to a less restrictive environment at this time may result in decompensation. Request Healthcare Surrogate/Guardian Advocate?: No
--- NOTE | 2018-05-04 20:12 | MG ---
cc: Armando Lindsay MD, PhD TEST NUMBER: [id number] TECHNIQUE: This is a 17-channel EEG. DESCRIPTION: The background rhythm reveals a symmetrical alpha rhythm, frequency of 8-10 Hz, amplitude is 20-40 microvolts. There is the expected anterior decrement to the response. No epileptiform features are identified. No lateralizing features are seen. Some sharp activity is identified in bilateral parietal areas. This occurs sporadically throughout the tracing. During drowsiness, there is slowing in the theta range. INTERPRETATION Abnormal EEG. There is intermittent, sharp activity in bilateral parietal areas. Clinical correlation is advised. Armando Lindsay MD, PhD FUNMI/delicia , 07:35 PM , 07:39 PM
[2018-05-05 05:51] VITALS: RESP 18
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
[2018-05-05] MEDS: lamoTRIgine 25 MG TABLET PO SCH ×2 (08:29→21:40)
[2018-05-05] MEDS: Pantoprazole Sodium 20 MG DR Tablet PO SCH (08:29)
[2018-05-05] MEDS: Sertraline 50 MG Tablet PO SCH (08:29)
[2018-05-06 06:13] VITALS: BP 137/84; PULSE 77; TEMP 98; O2SAT 97
[2018-05-06] MEDS: lamoTRIgine 25 MG TABLET PO SCH (08:13)
[2018-05-06] MEDS: Pantoprazole Sodium 20 MG DR Tablet PO SCH (08:13)
[2018-05-06] MEDS: Sertraline 50 MG Tablet PO SCH (08:13)
== END 2018-05-06 15:16 | disposition home or self-care (01) ==
LOC: NEDAMB 15:18 → NEDA 04-28 10:09 → H260 04-28 11:17 → H270 05-05 16:49
PROVIDERS: ADMIT Psychiatry & Neurology Psychiatry; ATTEND Psychiatry & Neurology Psychiatry